=== PATIENT | male | born 1955 | race Caucasian/White ===

== ENCOUNTER 2016-07-19 21:19 | Emergency (ER) | payer OTHER ==
[~2016-07-19] VITALS: Ht 180.3 cm; Wt 98.0 kg
[2016-07-19] MEDS ORDERED: METO50TA52 PO (21:46)
[2016-07-19] MEDS ORDERED: AMLODIPINE2.5 MG PO (21:47)
[2016-07-19] MEDS ORDERED: ULTRAM50 M1 PO (23:31)
[2016-07-20 00:17] VITALS: BP 128/65
[2016-07-21] MEDS ORDERED: BL IBUPROFEN200 MG PO (12:33)
[2016-07-21] MEDS ORDERED: PERCOCET 10/31 COMBO PO (16:51)
== END 2016-07-20 00:17 | disposition home or self-care (01) | DRG 563 ==
LOC: ED 21:19
PROC: 2W3PX1Z Immobilization of Left Upper Leg using Splint (ICD-10-PCS; principal; 2016-07-19)
DX: S82.042A Displaced comminuted fracture of left patella, initial encounter for closed fracture (principal); W01.0XXA Fall on same level from slipping, tripping and stumbling without subsequent striking against object, initial encounter; Y93.89 Activity, other specified; Y92.238 Other place in hospital as the place of occurrence of the external cause
CPT/HCPCS: L1830

== ENCOUNTER 2016-07-21 12:08 | Day surgery (SDC) | payer OTHER ==
[~2016-07-21] VITALS: Ht 180.3 cm; Wt 96.2 kg
[~2016-07-21 12:08] MED LIST: AMLODIPINE2.5 MG PO; METO50TA52 PO; ULTRAM50 M1 PO
[2016-07-21] MEDS ORDERED: BL IBUPROFEN200 MG PO (12:33)
[2016-07-21 12:59] LABS: HEMATOCRIT 42.8 % (39.0-50.0); HEMOGLOBIN 14.5 g/dl (14.0-18.0); IMMATURE GRANULOCYTES 0.2 % (0.0-1.0); MEAN CELL VOLUME 85.9 fL CALC (80.0-100.0); MEAN CORPUSCULAR HGB 29.1 pG CALC (26.0-32.0); MEAN CORPUSCULAR HGB CONC 33.9 g/L CALC (32.0-36.0); NEUT# 3.25 thou/uL (1.82-7.42); RED BLOOD COUNT 4.98 mill/uL (4.70-6.10); RED CELL DISTRI WIDTH 13.2 % (11.5-15.5)
[2016-07-21 13:25] LABS: ALBUMIN 4.5 g/dL (3.2-5.0); ALKALINE PHOSPHATASE 52 u/l (38-126); ANION GAP 17 (6-22 (CALC)); BILIRUBIN, TOTAL 0.6 mg/dL (0.0-1.4); BUN 17 mg/dL (9-20); BUN/CREATININE RATIO 16 (12-20 (CALC)); CALCIUM 9.3 mg/dL (8.4-10.2); CARBON DIOXIDE 26 mmol/l (22-30); CHLORIDE 105 mmol/l (95-108); CREATININE 1.1 mg/dL (0.7-1.3); GFR > 60 ML/MIN (>=60 (CALC)); GFR FOR AFR.AMER. > 60 ML/MIN (>=60 (CALC)); GLUCOSE 100 mg/dL (75-110); POTASSIUM 4.8 mmol/l (3.5-5.1); SGOT/AST 38 u/l (17-59); SGPT/ALT 58 u/l (21-72); SODIUM 143 mmol/l (137-146); TOTAL PROTEIN 7.5 g/dL (6.3-8.2)
[2016-07-21] MEDS ORDERED: PERCOCET 10/31 COMBO PO (16:51)
[2016-07-21 17:38] VITALS: BP 172/72
== END 2016-07-21 17:20 | disposition home or self-care (01) | DRG 502 ==
LOC: ORM 12:08
PROVIDERS: ATTEND Orthopaedic Surgery
PROC: 0QSF04Z Reposition Left Patella with Internal Fixation Device, Open Approach (ICD-10-PCS; principal; 2016-07-21)
PROC: 0LQR0ZZ Repair Left Knee Tendon, Open Approach (ICD-10-PCS; 2016-07-21)
DX: S82.042A Displaced comminuted fracture of left patella, initial encounter for closed fracture (principal); S86.812A Strain of other muscle(s) and tendon(s) at lower leg level, left leg, initial encounter; W19.XXXA Unspecified fall, initial encounter; Y92.89 Other specified places as the place of occurrence of the external cause

== ENCOUNTER → 2018-04-08 | Outpatient (REF) ==
[~2018-04-08] MED LIST changes: +BL IBUPROFEN200 MG PO; +PERCOCET 10/31 COMBO PO
[2018-04-08 09:07] LABS: CHOLESTEROL HDL RATIO 5.5 (<4.4 (CALC))
== END | disposition home or self-care (01) | DRG 951 ==
LOC: LAB 06:55
PROVIDERS: ATTEND Family Medicine
DX: Z02.6 Encounter for examination for insurance purposes (principal)

== ENCOUNTER 2019-02-11 | Emergency (ER) | payer OTHER ==
[~2019-02-11] MED LIST changes: +ADVANCED FIBER COMPL PO; -AMLODIPINE2.5 MG PO; +APPLE CIDE1 PO; +ASPIRIN CHEWABL81 MG PO; +CLOPIDOGREL75 MG PO; +CRESTOR20 MG PO; +FISH FLAX BORAGE OIL PO; +FISH PO; +FLAX PO; +GLUCOSAMINE CHO1 CA3 PO; +LEVOTHYROXIN88 MC1 PO; +MULTIVITAMIN ME1 TA2 PO; +NORVASC5 M1 PO; +OMEGA 3 500 5001 CAP PO; +PROBIOTIC1 TAB PO; +PROTONIX40 M2 PO; +SUPER B COMP PO; +TAMSULOSIN0.4 MG PO; +TURMERIC CURCU500 MG PO; +VITAMIN C500 M1 PO; +VITAMIN D2 PO; +[UNRECOGNIZED DRUG - OTHER] PO
[2019-02-12 01:14] LABS: ALBUMIN 4.6 g/dL (3.2-5.0); ALKALINE PHOSPHATASE 52 u/l (38-126); ANION GAP 15 (6-22 (CALC)); BILIRUBIN, TOTAL 0.3 mg/dL (0.0-1.4); BUN 24 mg/dL (8-23); BUN/CREATININE RATIO 22 (12-20 (CALC)); CARBON DIOXIDE 26 mmol/l (22-30); CHLORIDE 100 mmol/l (95-108); CPK 142 u/l (52-200); CREATININE 1.1 mg/dL (0.7-1.3); GFR > 60 ML/MIN (>=60 (CALC)); GFR FOR AFR.AMER. > 60 ML/MIN (>=60 (CALC)); POTASSIUM 4.6 mmol/l (3.5-5.1); SGOT/AST 52 u/l (19-48); SODIUM 137 mmol/l (137-146); TOTAL PROTEIN 7.8 g/dL (6.3-8.2)
[2019-02-12 01:39] LABS: URINE BILIRUBIN - DIPSTICK NEGATIVE (NEGATIVE); URINE BLOOD DIPSTICK NEGATIVE (NEGATIVE); URINE CLARITY CLEAR; URINE COLOR YELLOW; URINE GLUCOSE - DIPSTICK NEGATIVE (NEGATIVE); URINE KETONE NEGATIVE (NEGATIVE); URINE LEUK ESTERASE NEGATIVE (Negative); URINE NITRITE - DIPSTICK NEGATIVE (Negative); URINE PH 5.5 (4.5-8.0); URINE PROTEIN - DIPSTICK NEGATIVE (NEG-TRACE); URINE SPECIFIC GRAVITY 1.015; URINE UROBILINOGEN - DIPSTICK 0.2 E.U./dL (0.2)
[2019-02-12 01:41] LABS: HEMATOCRIT 41.3 % (39.0-50.0); HEMOGLOBIN 13.9 g/dl (14.0-18.0); MEAN CELL VOLUME 86.8 fL CALC (80.0-100.0); MEAN CORPUSCULAR HGB 29.2 pG CALC (26.0-32.0); MEAN CORPUSCULAR HGB CONC 33.7 g/L CALC (32.0-36.0); RED BLOOD COUNT 4.76 mill/uL (4.70-6.10); RED CELL DISTRI WIDTH 12.5 % (11.5-15.5)
[2019-02-12] MEDS ORDERED: KEFLEX500 M1 PO (02:37)
[2019-02-12] MEDS ORDERED: CRIXIVAN400 MG PO (06:15)
[2019-02-12] MEDS ORDERED: COMBIVIR 1501 COMBO PO (06:15)
== END 2019-02-11 23:45 | disposition home or self-care (01) | DRG 605 ==
DX: S61.230A Puncture wound without foreign body of right index finger without damage to nail, initial encounter (principal); I10 Essential (primary) hypertension; W46.1XXA Contact with contaminated hypodermic needle, initial encounter; Z95.5 Presence of coronary angioplasty implant and graft; Y92.238 Other place in hospital as the place of occurrence of the external cause; Y99.0 Civilian activity done for income or pay; Y93.F9 Activity, other caregiving

== ENCOUNTER 2021-08-11 06:46 | Day surgery (SDC) | payer OTHER ==
[~2021-08-11] VITALS: Ht 180.3 cm; Wt 97.5 kg
[~2021-08-11 06:46] MED LIST changes: +COMBIVIR 1501 COMBO PO; +CRIXIVAN400 MG PO; +KEFLEX500 M1 PO
[2021-08-11 09:39] VITALS: BP 141/79
== END 2021-08-11 09:54 | disposition home or self-care (01) | DRG 951 ==
LOC: ORM 06:46
PROVIDERS: ATTEND Surgery
PROC: 0DJD8ZZ Inspection of Lower Intestinal Tract, Via Natural or Artificial Opening Endoscopic (ICD-10-PCS; principal; 2021-08-11)
DX: Z12.11 Encounter for screening for malignant neoplasm of colon (principal); Q43.9 Congenital malformation of intestine, unspecified; K57.30 Diverticulosis of large intestine without perforation or abscess without bleeding; K64.8 Other hemorrhoids; I10 Essential (primary) hypertension; Z86.010 Personal history of colon polyps